=== PATIENT | male | born 1955 ===

== ENCOUNTER 2022-06-04 09:10 | Inpatient (IN) | payer MEDICARE ==
[~2022-06-04] VITALS: Ht 165.1 cm; Wt 117.4 kg
[2022-06-16] VITALS (10 sets, daily range): BP systolic 130–159; BP diastolic 61–85; PULSE 71–85; TEMP 97.7–98
[2022-06-16 12:08] LABS: HEMATOCRIT 41.6 % (42.0-52.0); HEMOGLOBIN 13.9 g/dl (13.5-18.0); MEAN CELL VOLUME 88 fl (80.0-100.0); MEAN CORPUSCULAR HEMOGLOBIN 29 pg (27-31); MEAN CORPUSCULAR HGB CONC 33 g/dl (33.0-37.0); MEAN PLATELET VOLUME 8.2 fl (7.4-10.4); PLATELET COUNT 208 K/mm3 (130-400); RED BLOOD COUNT 4.74 M/mm3 (4.20-5.60); REDCELL DISTRIBUTION WIDTH-CV 13.3 % (11.5-14.5)
[2022-06-16] MEDS ORDERED: GLUCOPHAGE500 MG/TAB PO (12:21)
[2022-06-16] MEDS ORDERED: PRINZIDE 12.5 M1 TAB PO (12:23)
[2022-06-16] MEDS ORDERED: ZYLOPRIM 300MG300 MG PO (12:24)
[2022-06-16 13:10] LABS: CALCIUM 8.8 mg/dL (8.4-10.2); CREATININE, serum 0.95 mg/dL (0.72-1.25); POTASSIUM 3.9 mmol/L (3.5-4.5)
--- NOTE | 2022-06-16 19:40 | NUR ---
pt resting in bed. post op vitals are stable. pt rates pain an 8/10 in abdomen. x4 laps sites are cdi. stuart to dd w yellow urine output. IV to right hand w LR infusing. call light in reach. no needs at this time.
[2022-06-17] VITALS (7 sets, daily range): BP systolic 119–154; BP diastolic 59–86; PULSE 62–70; TEMP 97.3–98.9
--- NOTE | 2022-06-17 05:33 | NUR ---
pt slept throughout the night. reports minimal pain in the abdomen. no longer requiring oxygen. call light in reach.
[2022-06-17 06:39] LABS: HEMATOCRIT 42.9 % (42.0-52.0); HEMOGLOBIN 14.3 g/dl (13.5-18.0); MEAN CELL VOLUME 87 fl (80.0-100.0); MEAN CORPUSCULAR HEMOGLOBIN 29 pg (27-31); MEAN CORPUSCULAR HGB CONC 33 g/dl (33.0-37.0); MEAN PLATELET VOLUME 8.2 fl (7.4-10.4); PLATELET COUNT 190 K/mm3 (130-400); RED BLOOD COUNT 4.91 M/mm3 (4.20-5.60)
[2022-06-17 07:00] LABS: CALCIUM 8.8 mg/dL (8.4-10.2); CREATININE, serum 1.14 mg/dL (0.72-1.25); PHOSPHOROUS 3.2 mg/dL (2.3-4.7); POTASSIUM 4.4 mmol/L (3.5-4.5)
[2022-06-17 07:22] LABS: BAND 8 % (0-10); LYMPHOCYTE 4 % (20.0-51.0); NEUTROPHILS 85 % (42.0-75.2); PLATELET ESTIMATE NORMAL (NORMAL)
--- NOTE | 2022-06-17 09:10 | NUR ---
PATIENT ALERT AND ORIENTED X4. VSS, WITH BP ELEVATED. PATIENT HERE FOR ROBOTIC RIGHT HEMICOLECTOMY. LAP SITES X4 WITH ONE TRANSVERSE, ALL CDI WITH SKIN GLUE. PATIENT REPORTS PAIN 7/10, REQUESTS PAIN MEDICATION. ASSESSMENT PERFORMED. AM MEDS ADMINISTERED. PATIENT RESTING IN BED WITH CALL LIGHT NEAR.
[2022-06-17] MEDS ORDERED: GLUCOPHAGE XR500 M1 PO (09:45)
--- NOTE | 2022-06-17 10:06 | NUR ---
Initial visit; Patient thanked for looking in on him. Following an introduction patient talked of being in the prayers of all his friends in [facility]. Perishable Fruit Inspector mentioned that she can keep him in her prayers also and wished him God's Blessings.
--- NOTE | 2022-06-17 13:03 | NUR ---
Dance Coach met with patient to complete intake. When SW entered patient's room, he was on the phone but told SW to come in and he ended the call. Patient advised he lives in [place] and sees GONSALO Sutton for primary care. Patient stated he lives alone. After this, patient took another call and could not answer anymore questions. JOSE spoke with RN about ordering PT/OT for patient. Discharge Plan: Home
--- NOTE | 2022-06-17 13:55 | NUR ---
JAYSON YOUNGBLOOD. PATIENT TOLERATED. DIET ADVANCED TO FULL LIQUIDS. PATIENT UP TO CHAIR. CHAIR ALARM ON. CALL LIGHT WITHIN REACH.
--- NOTE | 2022-06-17 20:38 | NUR ---
pt resting in bed talking on the phone. meds given and assessment complete. he reports having mild pain in his abdomen. incisions are cdi. reports passing gas and having a bowel movement today. pt independently up in room and voiding without difficulty. tolerating diet. nicotine patch to charu. INT to right hand flushes well. pt not scoring on ciwa protocol. call light in reach. no needs at this time.
[2022-06-18 02:22] VITALS: BP 137/70; PULSE 54; TEMP 97.6
[2022-06-18 04:44] VITALS: BP 143/69; PULSE 52; TEMP 97.9
[2022-06-18 06:29] VITALS: BP 111/59; PULSE 58; TEMP 98.1
[2022-06-18 06:29] LABS: BASO % 0.2 % (0.0-2.0); EOS % 0.3 % (0.0-4.0); GRAN # 7.3 K/mm3 (1.4-6.5); GRAN % 77.4 % (42.2-75.2); HEMATOCRIT 37.2 % (42.0-52.0); HEMOGLOBIN 12.5 g/dl (13.5-18.0); LYMPH # 1.2 K/mm3 (1.2-3.4); LYMPH % 12.9 % (20.0-51.0); MEAN CELL VOLUME 87 fl (80.0-100.0); MEAN CORPUSCULAR HEMOGLOBIN 29 pg (27-31); MEAN CORPUSCULAR HGB CONC 34 g/dl (33.0-37.0); MONO # 0.8 K/mm3 (0.1-0.6); MONO % 8.8 % (1.7-9.3); PLATELET COUNT 167 K/mm3 (130-400); RED BLOOD COUNT 4.27 M/mm3 (4.20-5.60); REDCELL DISTRIBUTION WIDTH-CV 13.2 % (11.5-14.5)
[2022-06-18 06:56] LABS: CALCIUM 8.7 mg/dL (8.4-10.2); CREATININE, serum 0.89 mg/dL (0.72-1.25); PHOSPHOROUS 2.6 mg/dL (2.3-4.7)
[2022-06-18 07:30] VITALS: BP 132/68; PULSE 55; TEMP 97.7
--- NOTE | 2022-06-18 09:42 | NUR ---
PATIENT ALERT AND ORIENTED X4. VSS. PATIENT HERE FOR RIGHT ROBOTIC HEMICOLECTOMY. LAP SITES X4 CDI. LOW TRANSVERSE SITE CDI. BOWEL SOUNDS ACTIVE. PATIENT REPORTS THREE LOOSE BOWEL MOVEMENTS THIS AM. PATIENT REPORTS PAIN 7/10, REQUESTS PAIN MEDICATION. STUDENT NURSE TO ADMINISTER MORNING MEDS. CALL LIGHT WITHIN REACH.
[2022-06-18 10:00] VITALS: BP 118/55; PULSE 70; TEMP 97.9
[2022-06-18 11:32] VITALS: BP 124/64; PULSE 63; TEMP 97.8
[2022-06-18] MEDS ORDERED: CELEBREX 200MG200 MG PO (15:35)
[2022-06-18] MEDS ORDERED: ROXICODONE 55 MG/TAB PO (15:35)
[2022-06-18] MEDS ORDERED: NEURONTIN100 MG/CAP PO (15:36)
--- NOTE | 2022-06-18 16:14 | NUR ---
DISCHARGE INSTRUCTIONS PROVIDED. PATIENT EDUCATION GIVEN. IV DC'D. FOLLOW UP APPOINTMENT DISCUSSED. MEDICATIONS REVIEWED. PATIENT DENIES ANY QUESTIONS OR CONCERNS. PATIENT ESCORTED OUT VIA WHEELCHAIR.
== END 2022-06-18 16:10 | disposition home or self-care (01) | DRG 330 ==
LOC: INPTSU 06-16 10:39 → SURG 06-16 12:30 → EDSTATUS 06-16 12:30 → SDCO 06-16 12:30 → SURG 06-16 17:43
PROVIDERS: ADMIT Surgery
PROC: 0DTF0ZZ Resection of Right Large Intestine, Open Approach (ICD-10-PCS; principal; 2022-06-16 12:30)
DX: C18.2 Malignant neoplasm of ascending colon (principal); Z68.41 Body mass index [BMI] 40.0-44.9, adult; K63.9 Disease of intestine, unspecified; E11.9 Type 2 diabetes mellitus without complications; I10 Essential (primary) hypertension; G47.33 Obstructive sleep apnea (adult) (pediatric); M10.00 Idiopathic gout, unspecified site; E66.01 Morbid (severe) obesity due to excess calories; G89.29 Other chronic pain; M54.50 Low back pain, unspecified; Z79.84 Long term (current) use of oral hypoglycemic drugs; Z79.82 Long term (current) use of aspirin
CPT/HCPCS: A4314; A9284; J0690; J2250; J2370; J2704; J2795; J3010; J7120